=== PATIENT | male | born 1970 | race Hispanic/Latino ===

== ENCOUNTER 2022-06-22 00:51 | Emergency (ER) | payer OTHER ==
[~2022-06-22] VITALS: Ht 167.6 cm; Wt 83.0 kg
[2022-06-22 01:24] LABS: BASOPHILS % (AUTO) 0.5 % (0.0-5.0); EOSINOPHILS % (AUTO) 1.8 % (0.0-8.0); HEMATOCRIT 43.7 % (42-54); LYMPHOCYTES % (AUTO) 38.4 % (21.0-51.0); MEAN CORPUSCULAR HEMOGLOBIN 29.5 pg (27.0-33.0); MEAN CORPUSCULAR HGB CONC 34.6 g/dL (32.0-36.0); MEAN CORPUSCULAR VOLUME 85.5 fL (79-99); MONOCYTES % (AUTO) 4.7 % (3.0-13.0); NEUTROPHILS % (AUTO) 54.2 % (40.0-77.0); PLATELET COUNT (AUTO) 192 K/uL (130-400); RED BLOOD CELL COUNT(AUTO) 5.11 MIL/uL (4.50-6.20); RED CELL DISTRIBUTION WIDTH 12.2 % (11.0-15.5); WHITE BLOOD COUNT (AUTO) 8.3 K/uL (4.8-10.8)
[2022-06-22 01:35] LABS: CREATININE 1.1 mg/dL (0.5-1.5); POTASSIUM 3.5 mmol/L (3.5-5.1)
[2022-06-22 01:40] LABS: ALBUMIN 3.9 g/dL (3.5-5.0); TOTAL PROTEIN, SERUM 7.7 g/dL (6.0-8.3)
[2022-06-22 02:38] VITALS: BP 130/80
[2022-06-22] MEDS ORDERED: PROCHLORPERAZINE 10MG/2ML INJ IV STA (02:38)
[2022-06-22] MEDS ORDERED: KETOROLAC 15MG/ML VIAL (15MG/ML) IV STA (02:38)
[2022-06-22 02:47] LABS: APPEARANCE,URINE CLEAR (CLEAR); BILIRUBIN,URINE NEGATIVE (NEGATIVE); COLOR,URINE COLORLESS (YELLOW); GLUCOSE, URINE (UA) NEGATIVE (NEGATIVE); KETONES,URINE NEGATIVE (NEGATIVE); LEUKOCYTE ESTERASE ,URINE NEGATIVE Leu/uL (NEGATIVE); NITRATE,URINE NEGATIVE (NEGATIVE); OCCULT BLOOD,URINE NEGATIVE (NEGATIVE); PROTEIN,URINE NEGATIVE (NEGATIVE); UROBILINOGEN,URINE 0.2 mg/dL (0.2-1.0)
[2022-06-22] MEDS ORDERED: DiphenhydrAMINE HCL 50 MG/ML VIAL IV ONE (03:00)
[2022-06-22] MEDS ORDERED: 0.9%NACL 1000ML 1,000 ML IV ONE (03:00)
[2022-06-22] MEDS ORDERED: PROC-13 PO (04:29)
== END 2022-06-22 04:38 | disposition home or self-care (01) ==
LOC: EDH 00:51
DX: B34.9 Viral infection, unspecified (principal); R10.9 Unspecified abdominal pain
CPT/HCPCS: 36415; 80053; 81003; 85025